=== PATIENT | female | born 1975 | race Caucasian/White ===

== ENCOUNTER 2018-01-11 12:56 | Emergency (ER) | payer MEDICARE ==
[2018-01-11 13:03] VITALS: BP 94/66; PULSE 87; RESP 16; TEMP 98.8
[2018-01-11] MEDS ORDERED: MORPHINE SULFATE 2 MG/ML SYRINGE IM STA (13:18)
--- NOTE | 2018-01-11 13:30 | ED ---
General Adult HPI - General Chief complaint: Extremity Problem,Nontraumatic Stated complaint: left hip pain Time Seen by Provider: 01/11/18 13:06 Source: patient, RN notes reviewed Mode of arrival: wheelchair Limitations: no limitations - History of Present Illness Initial comments: 42-year-old female presents to the emergency department for a chief complaint of left hip pain times one week. Patient has chronic back problems for which she sees neurology and pain management. Patient states the pain is now radiating from her left hip down to her left ankle. Patient states she has had sciatica in the past. Patient states she currently takes Percocet for pain. Patient states she cannot take any NSAIDs due to an ALLERGY that causes her throat to close. Patient cannot take steroids because they "make her aggressive." Patient denies any bladder or bowel changes. She states she is urinating regularly. Patient denies any numbness in the lower extremities bilaterally. Patient denies any injury to the low back or hip. Patient denies any IV drug abuse. Patient states she has had imaging done multiple times and does not want any imaging done today. She states she contacted her pain management doctor who could not get her in until next week and he told her to come here for pain. She also has an appointment for a CAT scan already scheduled. Patient has no other complaints at this time including shortness of breath, chest pain, abdominal pain, nausea or vomiting, headache, or visual changes. - Related Data Home Medications Medication Instructions Recorded Confirmed ALPRAZolam [Xanax] 1 mg PO Q8HR 10/09/14 10/09/14 FLUoxetine HCL [PROzac] 40 mg PO DAILY 10/09/14 10/09/14 Gabapentin [Neurontin] 600 mg PO TID 10/09/14 10/09/14 Hydrocodone/Acetaminophen [[place] 1 each PO Q8H PRN 10/09/14 10/09/14 10-325] Allergies Allergy/AdvReac Type Severity Reaction Status Date / Time cephalexin [From Keflex] Allergy Itching Verified 01/11/18 13:02 NSAIDS (Non-Steroidal Allergy Anaphylaxis Verified 01/11/18 13:02 Anti-Inflamma steroids Allergy Anaphylaxis Uncoded 01/11/18 13:02 Review of Systems ROS Statement: Those systems with pertinent positive or pertinent negative responses have been documented in the HPI. ROS Other: All systems not noted in ROS Statement are negative. Past Medical History Past Medical History: No Reported History Additional Past Medical History / Comment(s): bipolar History of Any Multi-Drug Resistant Organisms: None Reported Past Surgical History: Back Surgery, Hysterectomy Additional Past Surgical History / Comment(s): back surgery x3 with candy, 6 pins and cage. Past Anesthesia/Blood Transfusion Reactions: No Reported Reaction Past Psychological History: Bipolar Smoking Status: Current every day smoker Past Alcohol Use History: None Reported Past Drug Use History: None Reported General Exam Limitations: no limitations General appearance: alert, in no apparent distress Head exam: Present: atraumatic, normocephalic, normal inspection Eye exam: Present: normal appearance, PERRL, EOMI. Absent: scleral icterus, conjunctival injection, periorbital swelling ENT exam: Present: normal exam, mucous membranes moist Neck exam: Present: normal inspection. Absent: tenderness, meningismus, lymphadenopathy Respiratory exam: Present: normal lung sounds bilaterally. Absent: respiratory distress, wheezes, rales, rhonchi, stridor Cardiovascular Exam: Present: regular rate, normal rhythm, normal heart sounds. Absent: systolic murmur, diastolic murmur, rubs, gallop, clicks Back exam: Present: other (pedal pulse 2+ in lower extremities bilaterally. Cap refill < 2 seconds. Sensation intact in BLE. ). Absent: full ROM (Patient has about 60 of flexion of the lumbar spine and 15 extension.), tenderness (No tenderness in the lumbar spine), CVA tenderness (R), CVA tenderness (L), paraspinal tenderness, vertebral tenderness Psychiatric exam: Present: normal affect, normal mood Course Vital Signs 01/11/18 12:59 Temperature 98.8 F Pulse Rate 87 Respiratory 16 Rate Blood Pressure 94/66 O2 Sat by Pulse 95 Oximetry Medical Decision Making - Medical Decision Making 42-year-old female presents to the emergency department for a chief complaint of left hip pain. Patient states the pain is shooting down her left leg to her left ankle. Patient states she has chronic back problems for which she sees neurology and pain management. Patient currently takes Percocet through pain management. Patient contacted them today about this pain and scheduled appointment for next week. They told her to come to the emergency department for the pain in the meantime to get something to help. No bladder or bowel changes or IV drug use. On exam patient has some limited range of motion of the lumbar spine. Pedal pulse 2+ bilaterally Refill less than 2 seconds. Sensation intact. Patient refuses any imaging today as she has had multiple x- rays in the past and has a CAT scan already scheduled. She states she wants something just to take the edge off the pain. She cannot take Motrin or steroids. I told patient that all I can give her is a shot of morphine to help take the edge of the pain today and she will have to follow up with primary care or pain management. The shot didn't help her pain somewhat. Patient is aware we can't give her a prescription due to her pain contract. She will follow up at her appointment. She will come back to the emergency Department if she has worsening symptoms or bladder or bowel changes. Disposition Clinical Impression: Sciatica of left side Disposition: HOME SELF-CARE Condition: Good Instructions: Sciatica (ED), Lower Back Exercises (ED) Additional Instructions: Please continue to take Percocet as directed by pain management. Return to the emergency department if you have any worsening symptoms or changes in bladder or bowel function. Otherwise follow-up with neurologist at your appointment and schedule your CAT scan recommended by neurologist. Is patient prescribed a controlled substance at d/c from ED?: No Referrals: Gregorio Ernst DO [Primary Care Provider] - 1-2 days Time of Disposition: 13:28
== END 2018-01-11 13:55 | disposition home or self-care (01) ==
LOC: EC 12:56
DX: M54.32 Sciatica, left side (principal); F17.200 Nicotine dependence, unspecified, uncomplicated; Z53.29 Procedure and treatment not carried out because of patient's decision for other reasons; Z79.899 Other long term (current) drug therapy; Z88.1 Allergy status to other antibiotic agents; Z88.6 Allergy status to analgesic agent; Z88.8 Allergy status to other drugs, medicaments and biological substances
CPT/HCPCS: 99282; 96372; J2270

== ENCOUNTER → 2018-02-02 | Outpatient (CLI) | payer MEDICARE, OTHER ==
--- NOTE | 2018-02-02 21:41 | CT ---
EXAMINATION TYPE: CT lumbar spine wo con DATE OF EXAM: 02/02/2018 5:02 PM COMPARISON: MRI lumbar spine July 07, 2012 HISTORY: Low back pain. History of prior surgery. Pain for 6 years causing pain or weakness into left leg per Patient CT DLP: 1206.1 mGycm Automated exposure control for dose reduction was used. Unenhanced CT of the lumbar spine was performed. Bone and soft tissue window settings are submitted as well as coronal and sagittal reconstructions. There are 5 lumbar-type vertebra identified. Lumbar spine redemonstrates satisfactory alignment witho ut evidence of acute fracture or dislocation. Posterior interpedicular rods and screws transfix L5-S1 level bilaterally. There is metallic disc material at the left L5-S1 disc space. Vertebral body heig hts and disc space heights are maintained above this level. No posterior disc herniations are seen. Review of axial images shows the T12-L1, L1-L2, L2-L3, and L3-L4 levels all to appear within normal l imits. Axial images at L4-L5 level show artifact from posterior fusion hardware. There are mild facet degene rative changes bilaterally. Spinal canal is preserved. Bilateral neural foramina are patent. Axial images at L5-S1 level show artifact from disc spacer and posterior fusion hardware. Spinal jeremie l is well preserved. Posterior surgical changes present. Bilateral neural foramina are felt patent on sagittal images. IMPRESSION: Postsurgical change L5-S1 level with stable and satisfactory alignment. Mild degenerative changes L4-L5 level otherwise unremarkable study.
== END | disposition home or self-care (01) ==
LOC: RADCTMAIN 16:27
PROVIDERS: ATTEND Psychiatry & Neurology Neurology
DX: M47.816 Spondylosis without myelopathy or radiculopathy, lumbar region (principal); Z98.1 Arthrodesis status; Z88.2 Allergy status to sulfonamides; Z88.6 Allergy status to analgesic agent; Z88.8 Allergy status to other drugs, medicaments and biological substances
CPT/HCPCS: 72131

== ENCOUNTER 2018-05-26 09:27 | Emergency (ER) | payer MEDICARE ==
[2018-05-26 09:43] VITALS: BP 146/98; PULSE 98; RESP 18; TEMP 98.7
[2018-05-26] MEDS ORDERED: DIPH,PERTUS(ACELL)TETVAC-LF 0.5 ML VIAL IM ONE (09:49)
[2018-05-26] MEDS ORDERED: FLUTICASONE 50MCG/SPRAY NASAL 16GM EA NOSTRIL STA (10:10)
--- NOTE | 2018-05-26 10:13 | ED ---
General Adult HPI - General Chief complaint: Upper Respiratory Infection Stated complaint: congestion, cough Time Seen by Provider: 05/26/18 09:48 Source: patient, RN notes reviewed Mode of arrival: ambulatory Limitations: no limitations - History of Present Illness Initial comments: Patient 42-year-old female presenting to the emergency room today with chief complaint of cough congestion and sinus congestion over the last week. She does not that she's had a headache. She admits to headache is located upfront. She states she's had increased sinus congestion with stuffiness. She does admit that she's had some cough and congestion as well. She does admit to some drainage has been green in color. Patient states she cannot take anti- inflammatories been trying topical headache with little relief. Patient denies any other complaints or symptoms. Patient denies any recent fever, chills, shortness of breath, chest pain, back pain, abdominal pain, nausea or vomiting, numbness or tingling, dysuria or hematuria, constipation or diarrhea, headaches or visual changes, or any other complaints. - Related Data Home Medications Medication Instructions Recorded Confirmed ALPRAZolam [Xanax] 1 mg PO Q8HR 10/09/14 10/09/14 FLUoxetine HCL [PROzac] 40 mg PO DAILY 10/09/14 10/09/14 Gabapentin [Neurontin] 600 mg PO TID 10/09/14 10/09/14 Hydrocodone/Acetaminophen [[place] 1 each PO Q8H PRN 10/09/14 10/09/14 10-325] Previous Rx's Medication Instructions Recorded Amoxicillin 500 mg PO Q8H 10 Days day 05/26/18 Allergies Allergy/AdvReac Type Severity Reaction Status Date / Time cephalexin [From Keflex] Allergy Itching Verified 01/11/18 13:02 NSAIDS (Non-Steroidal Allergy Anaphylaxis Verified 01/11/18 13:02 Anti-Inflamma steroids Allergy Anaphylaxis Uncoded 01/11/18 13:02 Review of Systems ROS Statement: Those systems with pertinent positive or pertinent negative responses have been documented in the HPI. ROS Other: All systems not noted in ROS Statement are negative. Past Medical History Past Medical History: No Reported History Additional Past Medical History / Comment(s): bipolar History of Any Multi-Drug Resistant Organisms: None Reported Past Surgical History: Back Surgery, Hysterectomy Additional Past Surgical History / Comment(s): back surgery x3 with candy, 6 pins and cage. Past Anesthesia/Blood Transfusion Reactions: No Reported Reaction Past Psychological History: Anxiety, Bipolar Smoking Status: Former smoker Past Alcohol Use History: None Reported Past Drug Use History: None Reported General Exam - General Exam Comments Initial Comments: General: The patient is awake and alert, in no distress, and does not appear acutely ill. Eye: Pupils are equal, round and reactive to light. Extra-ocular movements are intact. No nystagmus. There is normal conjunctiva bilaterally. No signs of icterus. Ears, nose, mouth and throat: There are moist mucous membranes and no oral lesions. Tender to palpation over frontal maxillary sinuses. TMs clear bilaterally. Neck: The neck is supple, there is no tenderness or JVD. Cardiovascular: There is a regular rate and rhythm. No murmur, rub or gallop is appreciated. Respiratory: Lungs are clear to auscultation, respirations are non-labored, breath sounds are equal. No wheezes, stridor, rales, or rhonchi. Musculoskeletal: Normal ROM, no tenderness. Sensation intact. Neurological: A&O x 3. CN II-XII intact, There are no obvious motor or sensory deficits. Coordination appears grossly intact. Speech is normal. Skin: Skin is warm and dry and no rashes or lesions are noted. Psychiatric: Cooperative, appropriate mood & affect, normal judgment. Limitations: no limitations Course Vital Signs 05/26/18 09:39 Temperature 98.7 F Pulse Rate 98 Respiratory 18 Rate Blood Pressure 146/98 O2 Sat by Pulse 97 Oximetry Medical Decision Making - Medical Decision Making Patient's symptoms are consistent with sinus infection. She'll be started on Flonase here in the emergency room and given a prescription for amoxicillin she states she cannot afford antibiotics. She is advised that this is a free prescription at [place] [facility]. Patient is advised to use [id number] Sudafed along with Flonase for her symptoms. Advised to follow family physician returning for any other concerns. Disposition Clinical Impression: Acute sinusitis Disposition: HOME SELF-CARE Condition: Good Instructions: Sinusitis (ED) Additional Instructions: Please use medication as discussed. Please follow-up with family doctor in the next 2 days of symptoms have not improved. Please return to emergency room if the symptoms increase or worsen or for any other concerns. Prescriptions: Amoxicillin 500 mg PO Q8H 10 Days day Is patient prescribed a controlled substance at /c from ED?: No Referrals: Gregorio Ernst DO [Primary Care Provider] - 1-2 days Time of Disposition: 10:13
== END 2018-05-26 11:16 | disposition home or self-care (01) ==
LOC: EC 09:27
DX: J01.90 Acute sinusitis, unspecified (principal); F41.9 Anxiety disorder, unspecified; F31.9 Bipolar disorder, unspecified; Z87.891 Personal history of nicotine dependence; Z79.899 Other long term (current) drug therapy; Z88.1 Allergy status to other antibiotic agents; Z88.6 Allergy status to analgesic agent; Z88.8 Allergy status to other drugs, medicaments and biological substances; Z53.8 Procedure and treatment not carried out for other reasons
CPT/HCPCS: 99283

== ENCOUNTER 2018-11-11 13:24 | Emergency (ER) | payer MEDICARE ==
--- NOTE | 2018-11-11 14:21 | ED ---
Back Pain HPI - General Chief Complaint: Back Pain/Injury Stated Complaint: Back pain Time Seen by Provider: 11/11/18 13:37 Source: patient, RN notes reviewed Mode of arrival: ambulatory Limitations: no limitations - History of Present Illness Initial Comments: 43-year-old female presents emergency Department with chief complaint of low back pain. Patient states she has chronic low back pain is had multiple surgeries states that she's also had a pain pump placed. Patient states she's been doing better with the pain pump except for the last 2 days. Patient called her neurologist Dr. Cardoza recommended to come emergency by her for CT and wanted to be notified further symptoms. Patient denies any bowel bladder incontinence or retention. Denies any fevers, chills, night sweats or any abdominal pain. Patient states this has pain primarily low back and rates on her left leg. - Related Data Home Medications Medication Instructions Recorded Confirmed Acetaminophen [Tylenol] 325 mg PO Q4H 05/26/18 05/26/18 FLUoxetine HCL [PROzac] 80 mg PO DAILY 05/26/18 05/26/18 Folic Acid 1 mg PO DAILY 05/26/18 05/26/18 Loratadine [Claritin] 10 mg PO DAILY 05/26/18 05/26/18 clonazePAM [KlonoPIN] 0.5 mg PO DAILY 05/26/18 05/26/18 oxyCODONE-APAP 7.5-325MG [Percocet 1 tab PO TID 05/26/18 05/26/18 7.5-325 mg] Previous Rx's Medication Instructions Recorded Amoxicillin 500 mg PO Q8H 10 Days day 05/26/18 Allergies Allergy/AdvReac Type Severity Reaction Status Date / Time cephalexin [From Keflex] Allergy Itching Verified 11/11/18 13:32 NSAIDS (Non-Steroidal Allergy Anaphylaxis Verified 11/11/18 13:32 Anti-Inflamma steroids Allergy Anaphylaxis Uncoded 11/11/18 13:32 Review of Systems ROS Statement: Those systems with pertinent positive or pertinent negative responses have been documented in the HPI. ROS Other: All systems not noted in ROS Statement are negative. Past Medical History Past Medical History: No Reported History Additional Past Medical History / Comment(s): bipolar, chronic back pain History of Any Multi-Drug Resistant Organisms: None Reported Past Surgical History: Back Surgery, Hysterectomy Additional Past Surgical History / Comment(s): back surgery x3 with candy, 6 pins and cage. Past Anesthesia/Blood Transfusion Reactions: No Reported Reaction Past Psychological History: Anxiety, Bipolar Smoking Status: Current every day smoker Past Alcohol Use History: None Reported Past Drug Use History: None Reported General Exam Limitations: no limitations General appearance: alert, in no apparent distress Head exam: Present: atraumatic, normocephalic, normal inspection Respiratory exam: Present: normal lung sounds bilaterally. Absent: respiratory distress, wheezes, rales, rhonchi, stridor Cardiovascular Exam: Present: regular rate, normal rhythm, normal heart sounds. Absent: systolic murmur, diastolic murmur, rubs, gallop, clicks GI/Abdominal exam: Present: soft, normal bowel sounds. Absent: distended, tenderness, guarding, rebound, rigid Extremities exam: Present: normal inspection (Lower extremity strength equal bilaterally neurovascular intact), full ROM, normal capillary refill. Absent: tenderness, pedal edema, joint swelling, calf tenderness Back exam: Present: full ROM (Discomfort), tenderness (Mild to moderate left lower lumbar, buttocks region), paraspinal tenderness. Absent: vertebral tenderness Neurological exam: Present: alert, oriented X3, CN II-XII intact, reflexes normal. Absent: motor sensory deficit Skin exam: Present: warm, dry, intact, normal color. Absent: rash Course Vital Signs 11/11/18 13:30 Temperature 97.8 F Pulse Rate 72 Respiratory 18 Rate Blood Pressure 104/63 O2 Sat by Pulse 97 Oximetry Medical Decision Making - Medical Decision Making 43-year-old female presented for increasing back pain. Patient is a patient of Dr. Cardoza. CT was obtained and case discussed with Dr. Cardoza which he states this ruled out any signs of acute process. Patient has no focal weakness. Patient has pain radiating down her left leg which exacerbation of chronic pain will be given an injection of pain meds and discharged follow-up in office. Disposition Clinical Impression: Acute exacerbation of chronic low back pain Disposition: HOME SELF-CARE Condition: Stable Instructions (If sedation given, give patient instructions): Chronic Back Pain (ED) Additional Instructions: Please return to the Emergency Department if symptoms worsen or any other concerns. Is patient prescribed a controlled substance at d/c from ED?: No Referrals: Daniel Delgado MD [Primary Care Provider] - 1-2 days Time of Disposition: 14:55
--- NOTE | 2018-11-11 14:40 | CT ---
EXAMINATION TYPE: CT lumbar spine wo con DATE OF EXAM: 11/11/2018 COMPARISON: 02/02/2018 HISTORY: Back pain CT DLP: 1340.9 mGycm CONTRAST: None TECHNIQUE: CT of the lumbar spine is performed on a spiral scan at 3 mm thick sections. Reconstructed images are performed in the coronal and sagittal planes. FINDINGS: Small amount of atelectasis possible minimal fluid is at the right lung base. Pain pump cat heter is along the right portion of the spinal canal. This exits the L3-4 level. T12-L1: No focal disc herniation or significant disc bulge is evident. No spinal canal stenosis or neural foraminal stenosis is present. L1-L2: No focal disc herniation or significant disc bulge is evident. No spinal canal stenosis or n eural foraminal stenosis is present L2-L3: No focal disc herniation or significant disc bulge is evident. No spinal canal stenosis or n eural foraminal stenosis is present L3-L4: Broad-based disc bulge has mild anterior thecal sac contact. No AP spinal canal stenosis prese nt. Neural foramen are patent. L4-L5: Pedicle screws are present L5. This causes beam hardening artifact. Some limitation of the spi nal canal is present at this level. Significant disc bulge or focal disc herniation is not identified . L5-S1: There is a metallic disc spacer L5 where causing significant beam hardening artifact. Pedicle screws are present L5-S1. Laminectomy has been performed. No spinal canal stenosis is evident. There is limited evaluation due to the beam hardening artifact. Vertebral alignment appears normal. No significant interval changes evident from 2014. IMPRESSION: Postsurgical changes L4-5 L5-S1. 2. No obvious stenosis present. 3. Mild anterior thecal sac flattening from broad-based disc bulge L3-4
[2018-11-11] MEDS ORDERED: HYDROmorphone 1 MG/ML 1 ML SYRINGE IM STA (14:54)
[2018-11-11 15:20] VITALS: BP 116/68; PULSE 70; RESP 16; TEMP 96.9
== END 2018-11-11 15:19 | disposition home or self-care (01) ==
LOC: EC 13:24
DX: G89.29 Other chronic pain (principal); M54.5 Low back pain; F41.9 Anxiety disorder, unspecified; F31.9 Bipolar disorder, unspecified; F17.200 Nicotine dependence, unspecified, uncomplicated; Z98.890 Other specified postprocedural states; Z97.8 Presence of other specified devices; Z79.891 Long term (current) use of opiate analgesic; Z79.899 Other long term (current) drug therapy; Z88.1 Allergy status to other antibiotic agents; Z88.6 Allergy status to analgesic agent; Z88.8 Allergy status to other drugs, medicaments and biological substances
CPT/HCPCS: 72131; 99283; 96372; J1170